=== PATIENT | male | born 1995 | race Hispanic/Latino ===

== ENCOUNTER 2017-05-25 02:35 | Observation (INO) | payer BC, SELFPAY ==
[2017-05-25 03:52] LABS: Absolute Monocytes 1.1 K/uL (0.1-1.3); Absolute Neutrophil 10.7 K/uL (1.8-8.0); Basophils % 0.6 % (0-1.3); Eosinophils % 3.4 % (0-4.4); Hematocrit 51.2 % (39.6-49.0); Lymphocytes % 19.1 % (15.3-44.8); MPV 10.7 fL (7.6-11.3); Monocytes % 7.4 % (3.3-12.3); RBC Red Blood Cell Count 5.51 M/uL (4.33-5.43)
[2017-05-25] MEDS ORDERED: HYDROCODONE/APAP 7.5/325 MG TAB ONE (04:23)
[2017-05-25] MEDS ORDERED: CEFAZOLIN SODIUM 1 GM/VIAL ONE (04:46)
--- NOTE | 2017-05-25 05:07 | EDPHYS ---
Physician Documentation [facility] Name: Jose Rafael Turpin Jr Age: 22 yrs Sex: Male : 1995 Arrival Date: 05/25/2017 Time: 02:38 Bed 18 Private MD: ED Physician Joel Paula HPI: 05/25 03:07 This 22 yrs old Male presents to ER via Wheelchair with complaints of Ankle pkl Injury, Ankle Swelling. 03:07 The patient presents with an injury, pain, that is acute, swelling. The complaints pkl affect the left ankle. Onset: The symptoms/episode began/occurred 2 day(s) ago. Context: resulted from hit left ankle against unknown object. Associated signs and symptoms: The patient has no apparent associated signs or symptoms. Historical: - Allergies: 02:57 NKA; jd3 - Home Meds: 02:57 None [Active]; jd3 - PMHx: 02:57 fatty liver; jd3 - PSHx: 02:57 None; jd3 - Immunization history:: Adult Immunizations up to date. - Social history:: Smoking status: Patient/guardian denies using tobacco, Patient/guardian denies using alcohol, street drugs. ROS: 03:07 Eyes: Negative for injury, pain, redness, and discharge, ENT: Negative for injury, pkl pain, and discharge, Neck: Negative for injury, pain, and swelling, Cardiovascular: Negative for chest pain, palpitations, and edema, Respiratory: Negative for shortness of breath, cough, wheezing, and pleuritic chest pain, Abdomen/GI: Negative for abdominal pain, nausea, vomiting, diarrhea, and constipation, Back: Negative for injury and pain, : Negative for injury, bleeding, discharge, and swelling, Neuro: Negative for headache, weakness, numbness, tingling, and seizure. 03:07 MS/extremity: Positive for pain, swelling, tenderness, of the left ankle. Exam: 03:07 Head/Face: Normocephalic, atraumatic. Eyes: Pupils equal round and reactive to light, pkl extra-ocular motions intact. Lids and lashes normal. Conjunctiva and sclera are non-icteric and not injected. Cornea within normal limits. Periorbital areas with no swelling, redness, or edema. ENT: Nares patent. No nasal discharge, no septal abnormalities noted. Tympanic membranes are normal and external auditory canals are clear. Oropharynx with no redness, swelling, or masses, exudates, or evidence of obstruction, uvula midline. Mucous membranes moist. Neck: Trachea midline, no thyromegaly or masses palpated, and no cervical lymphadenopathy. Supple, full range of motion without nuchal rigidity, or vertebral point tenderness. No Meningismus. Chest/axilla: Normal chest wall appearance and motion. Nontender with no deformity. No lesions are appreciated. Cardiovascular: Regular rate and rhythm with a normal S1 and S2. No gallops, murmurs, or rubs. Normal PMI, no JVD. No pulse deficits. Respiratory: Lungs have equal breath sounds bilaterally, clear to auscultation and percussion. No rales, rhonchi or wheezes noted. No increased work of breathing, no retractions or nasal flaring. Abdomen/GI: Soft, non-tender, with normal bowel sounds. No distension or tympany. No guarding or rebound. No evidence of tenderness throughout. Back: No spinal tenderness. No costovertebral tenderness. Full range of motion. Neuro: Awake and alert, GCS 15, oriented to person, place, time, and situation. Cranial nerves II-XII grossly intact. Motor strength 5/5 in all extremities. Sensory grossly intact. Cerebellar exam normal. Normal gait. 03:07 Musculoskeletal/extremity: Extremities: grossly normal except: noted in the left ankle: pain, swelling, tenderness. Vital Signs: 02:57 BP 143 / 88; Pulse 84; Resp 18 S; Temp 98.2(O); Pulse Ox 96% on R/A; Weight 111.13 kg jd3 (R); Height 5 ft. 6 in. (167.64 cm) (R); Pain 9/10; 04:13 BP 134 / 76; Pulse 82; Resp 17 S; Pulse Ox 97% on R/A; jd3 05:43 BP 118 / 58; Pulse 88; Resp 18 S; Pulse Ox 97% on R/A; jd3 06:38 BP 130 / 72; Pulse 74; Resp 18 S; Pulse Ox 96% on R/A; Pain 9/10; jd3 07:44 BP 117 / 59; Pulse 75; Resp 16; Temp 98.0; Pulse Ox 100% on R/A; Pain 9/10; em 02:57 Body Mass Index 39.54 (111.13 kg, 167.64 cm) jd3 MDM: 02:58 Patient medically screened. pkl 04:22 Data reviewed: vital signs, nurses notes, lab test result(s), radiologic studies, plain pkl films. 05/25 03:01 Order name: CBC with Diff; Complete Time: 05:02 pkl 04 03:01 Order name: Sed Rate; Complete Time: 05:02 pkl 05/25 03:01 Order name: Ankle Left 3 View XRAY; Complete Time: 19:02 pkl 05/25 05:18 Order name: SL; Complete Time: 05:18 jd3 Administered Medications: 04:02 Drug: [place] (7.5 mg-325 mg) 1 tabs Route: PO; bb 04:40 Follow up: Response: No adverse reaction jd3 05:15 Drug: morphine 4 mg Route: IVP; Site: left forearm; jd3 06:36 Follow up: Response: No adverse reaction; No change in condition jd3 05:15 Drug: Zofran 4 mg Route: IVP; Site: left forearm; jd3 06:36 Follow up: Response: No adverse reaction; No change in condition jd3 05:15 Drug: NS 0.9% 1000 ml Route: IV; Rate: 125 ml/hr; Site: left forearm; jd3 08:04 Follow up: IV Status: Infusion continued upon admission; IV Intake: 350ml em 05:18 Not Given (Physician Discretion): Ancef 1 grams IM once jd3 Disposition: 05/25/17 05:06 Hospitalization ordered by Renate Burden for Observation. Preliminary diagnosis is Cellulitis left ankle. - Bed requested for Telemetry/MedSurg (observation). - Status is Observation. em - Condition is Stable. - Problem is new. - Symptoms are unchanged. UTI on Admission? No Signatures: Dispatcher [employer] Mercy Kaur, RN Joel Alexander MD MD pkl Munoz, Edgar, CHIP UNLOADER CHIP UNLOADER em Kaylen De Paz RN RN bb Davies, Jonathon RN RN jd3 Corrections: (The following items were deleted from the chart) 04:33 04:22 Crutches ordered. pkl jd3
--- NOTE | 2017-05-25 05:07 | ER ---
Nurse's Notes [facility] Name: Jose Rafael Turpin Jr Age: 22 yrs Sex: Male : 1995 Arrival Date: 05/25/2017 Time: 02:38 Bed 18 Private MD: Diagnosis: Cellulitis left ankle Presentation: 05/25 02:53 Presenting complaint: Patient states: "I had bummed my left ankle two days ago, it jd3 didn't hurt initially, but yesterday into today it has started hurting worse and worse.". Transition of care: patient was not received from another setting of care. Onset of symptoms was May 23, 2017. Care prior to arrival: None. 02:53 Method Of Arrival: Wheelchair jd3 02:53 Acuity: KYARA 4 jd3 Historical: - Allergies: 02:57 NKA; jd3 - Home Meds: 02:57 None [Active]; jd3 - PMHx: 02:57 fatty liver; jd3 - PSHx: 02:57 None; jd3 - Immunization history:: Adult Immunizations up to date. - Social history:: Smoking status: Patient/guardian denies using tobacco, Patient/guardian denies using alcohol, street drugs. Screenin:01 Abuse screen: Denies threats or abuse. Nutritional screening: No deficits noted. jd3 Tuberculosis screening: No symptoms or risk factors identified. Fall Risk Gait- Weak (10 pts.). Total Adam Fall Scale indicates No Risk (0-24 pts). Assessment: 02:59 General: Appears in no apparent distress. uncomfortable, Behavior is calm, cooperative, jd3 appropriate for age. Pain: Complains of pain in anterior aspect of left ankle Pain currently is 9 out of 10 on a pain scale. Quality of pain is described as aching, sharp, Pain began 2-3 days ago. Neuro: Level of Consciousness is awake, alert, obeys commands, Oriented to person, place, time, situation. Cardiovascular: Heart tones S1 S2 present Capillary refill < 3 seconds Patient's skin is warm and dry. Respiratory: Airway is patent Respiratory effort is even, unlabored, Respiratory pattern is regular, symmetrical, Breath sounds are clear bilaterally. GI: Abdomen is round Patient currently denies abdominal pain, nausea, pain. : No signs and/or symptoms were reported regarding the genitourinary system. EENT: No signs and/or symptoms were reported regarding the EENT system. Derm: Skin is intact, Skin is dry, Skin is normal, Skin temperature is warm. Musculoskeletal: Circulation, motion, and sensation intact. Range of motion: limited in left ankle. Injury Description: Bruise sustained to anterior aspect of left ankle is red, was sustained 2 days ago. 04:12 Reassessment: Patient appears in no apparent distress at this time. Patient and/or jd3 family updated on plan of care and expected duration. Pain level reassessed. Patient is alert, oriented x 3, equal unlabored respirations, skin warm/dry/pink. 05:43 Reassessment: Patient appears in no apparent distress at this time. Patient and/or jd3 family updated on plan of care and expected duration. Pain level reassessed. Patient is alert, oriented x 3, equal unlabored respirations, skin warm/dry/pink. 06:37 Reassessment: Patient appears in no apparent distress at this time. Patient and/or jd3 family updated on plan of care and expected duration. Pain level reassessed. Patient is alert, oriented x 3, equal unlabored respirations, skin warm/dry/pink. pt reported no relief from pain, but was willing till after admission before more pain medication. provider notified. Vital Signs: 02:57 BP 143 / 88; Pulse 84; Resp 18 S; Temp 98.2(O); Pulse Ox 96% on R/A; Weight 111.13 kg j (R); Height 5 ft. 6 in. (167.64 cm) (R); Pain 9/10; 04:13 BP 134 / 76; Pulse 82; Resp 17 S; Pulse Ox 97% on R/A; jd3 05:43 BP 118 / 58; Pulse 88; Resp 18 S; Pulse Ox 97% on R/A; jd3 06:38 BP 130 / 72; Pulse 74; Resp 18 S; Pulse Ox 96% on R/A; Pain 9/10; jd3 07:44 BP 117 / 59; Pulse 75; Resp 16; Temp 98.0; Pulse Ox 100% on R/A; Pain 9/10; em 02:57 Body Mass Index 39.54 (111.13 kg, 167.64 cm) [facility] ED Course: 02:38 Patient arrived in ED. ds1 02:52 Vahid Grace RN is Primary Nurse. jd3 02:55 Triage completed. jd3 02:57 Joel Paula MD is Attending Physician. pkl 02:58 Arm band placed on. jd3 03:01 Patient has correct armband on for positive identification. Bed in low position. Call jd3 light in reach. Side rails up X 1. Adult w/ patient. 03:40 X-ray completed. Portable x-ray completed in exam room. Patient tolerated procedure kw well. 03:42 Ankle Left 3 View XRAY In Process Unspecified. EDMS 05:05 Renate Burden MD is Hospitalizing Provider. pkl 05:08 Inserted saline lock: 20 gauge in left forearm, using aseptic technique. cb2 06:38 No provider procedures requiring assistance completed. Patient admitted, IV remains in jd3 place. 06:58 Report given to Anjali BACH. jd3 Administered Medications: 04:02 Drug: [place] (7.5 mg-325 mg) 1 tabs Route: PO; bb 04:40 Follow up: Response: No adverse reaction jd3 05:15 Drug: morphine 4 mg Route: IVP; Site: left forearm; jd3 06:36 Follow up: Response: No adverse reaction; No change in condition jd3 05:15 Drug: Zofran 4 mg Route: IVP; Site: left forearm; jd3 06:36 Follow up: Response: No adverse reaction; No change in condition jd3 05:15 Drug: NS 0.9% 1000 ml Route: IV; Rate: 125 ml/hr; Site: left forearm; jd3 08:04 Follow up: IV Status: Infusion continued upon admission; IV Intake: 350ml em 05:18 Not Given (Physician Discretion): Ancef 1 grams IM once jd3 Intake: 08:04 IV: 350ml; Total: 350ml. em Outcome: 05:06 Decision to Hospitalize by Provider. pkl 07:56 Admitted to Med/surg accompanied by tech, via wheelchair, room 430, Report called to german Esteves RN 07:56 Condition: good 07:56 Instructed on the need for admit, Demonstrated understanding of instructions, follow-up care. 08:05 Patient left the ED. em Signatures: Dispatcher [employer] EDMO Joel Paula MD MD pkl Munoz, Edgar, LVN LVN Tamika Rojo ds1 Kaylen De Paz RN RN bb Yanni Mortensen Christian cb2 Davies, Jonathon, RN RN jd3 Corrections: (The following items were deleted from the chart) 04:41 04:24 Response: Pain is decreased jd3 jd3
[2017-05-25] MEDS ORDERED: ONDANSETRON 4 MG/2 ML VIAL ONE (05:27)
[2017-05-25] MEDS ORDERED: NA CHLORIDE 0.9% 1,000 ML ONE (05:27)
[2017-05-25] MEDS ORDERED: MORPHINE 4 MG/ML SYR ONE (05:27)
[2017-05-25] MEDS ORDERED: MORPHINE 2 MG/ML SYR IV PRN (05:39)
[2017-05-25] MEDS ORDERED: ONDANSETRON 4 MG/2 ML VIAL IV PRN (05:39)
[2017-05-25] MEDS ORDERED: ACETAMINOPHEN 500 MG TAB PO PRN (05:39)
--- NOTE | 2017-05-25 07:57 | RAD REPORT ---
EXAM DESCRIPTION: RAD - Ankle Left 3 View - 05/25/2017 3:42 am CLINICAL HISTORY: Ankle pain COMPARISON: None. FINDINGS: No fracture, dislocation or periosteal reaction. No joint effusion seen. No joint space na rrowing. Soft tissues around the ankle joint are prominent with the baseline for the patient is not k nown. No air or foreign body. No plantar or Achilles spurring. IMPRESSION: No acute bone or joint finding. Prominent soft tissues are present with the baseline unknown.
[2017-05-25] MEDS ORDERED: COLCHICINE 0.6 MG TAB PO ONE (08:10)
[2017-05-25] MEDS ORDERED: HYDROCORTISONE SUC 100 MG INJ IV ONE (08:10)
--- NOTE | 2017-05-25 08:21 | P.HP ---
Certification for Inpatient Patient admitted to: Observation With expected LOS: <2 Midnights Patient will require the following post-hospital care: None Practitioner: I am a practitioner with admitting privileges, knowledge of patient current condition, hospital course, and medical plan of care. Services: Services provided to patient in accordance with Admission requirements found in Title 42 Section 412.3 of the Code of Federal Regulations Patient History Date of Service: 05/25/17 Reason for admission: Left ankle pain History of Present Illness: Patient is a 22-year-old gentleman who came into the hospital after having severe pain in his left ankle. He apparently was walking from 1 room to the next when he accidentally kicked a separation in the doorway. 24 hr later his ankle was swollen and having a lot of pain. The ankle is painful to even very light touch. There is no erythema putting it is edematous. He may have sprained his ankle. Concern for gout as well. Patient will be admitted to the hospital for observation. Allergies No Known Allergies Allergy (Unverified 07/08/16 10:28) - Past Medical/Surgical History Past Medical History: Patient denies medical history Past Surgical History: Patient denies surgical history - Family History Father Family History: Reviewed- Non-Contributory - Social History Smoking Status: Never smoker Alcohol use: No CD- Drugs: No Review of Systems 10-point ROS is otherwise unremarkable Physical Examination - Vital Signs Temperature: 98.0 F Blood Pressure: 117/59 Pulse: 75 Respirations: 16 - Physical Exam General: Alert, In no apparent distress, Oriented x3 HEENT: Atraumatic, PERRLA, Mucous membr. moist/pink, EOMI, Sclerae nonicteric Neck: Supple, 2+ carotid pulse no bruit, No LAD, Without JVD or thyroid abnormality Respiratory: Clear to auscultation bilaterally, Normal air movement Cardiovascular: Regular rate/rhythm, Normal S1 S2, No murmurs Gastrointestinal: Normal bowel sounds, Soft and benign, Non-distended, No tenderness Musculoskeletal: No clubbing, Swelling, Tenderness Integumentary: No rashes Neurological: Normal gait, Normal speech, Normal strength at 5/5 x4 extr, Normal tone, Sensation intact, Cranial nerves 3-12 intact, Normal affect Lymphatics: No axilla or inguinal lymphadenopathy - Studies Laboratory Data (last 24 hrs) 05/25/17 03:17: WBC 15.4 H, Hgb 17.6, Hct 51.2 H, Plt Count 219 Assessment & Plan - Problems (Diagnosis) (1) Left ankle pain Current Visit: Yes Status: Acute Qualifiers: Chronicity: acute Qualified Code(s): M25.572 - Pain in left ankle and joints of left foot - Plan 1. Continue with IV antibiotic 2. Continue with steroids, and colchicine 3. Gentle IV hydration 4. Monitor CBC 5. Pain control 6. GI and DVT prophylaxis Discharge Plan: Home Plan to discharge in: 48 Hours - Advance Directives Does patient have a Living Will: No Does patient have a Durable POA for Healthcare: No - Code Status/Comfort Care Code Status Assessed: Yes Code Status: Full Code Critical Care: No Time Spent Managing PTS Care (In Minutes): 50
[2017-05-25] MEDS: AMPICILLIN/SULBACT 3 GM in NA CHLORIDE 0.9% 100 ML IVPB SCH ×3 (09:18→17:04)
[2017-05-25] MEDS: NA CHLORIDE 0.9% 1,000 ML IV SCH ×2 (09:26→16:00)
[2017-05-25 10:05] VITALS: BMI 39.5
[2017-05-25 12:39] LABS: ALT/SGPT 115 IU/L (10-60); AST/SGOT 58 IU/L (10-42); Albumin 4.2 g/dL (3.2-5.5); Alkaline Phosphatase 107 IU/L (42-121); BUN Blood Urea Nitrogen 8 mg/dL (6-20); Bicarbonate 26 mEq/L (21-31); Bilirubin Total 1.2 mg/dL (0.3-1.2); Glomerular Filtration Rate > 90 mL/min (=/>90); Glucose Level 106 mg/dL (65-120); Potassium 3.7 mEq/L (3.6-5.0); Protein, Total 7.5 g/dL (6.0-8.3); Sodium Level 136 mEq/L (135-145); Uric Acid 9.6 mg/dL (4.8-8.7)
--- NOTE | 2017-05-25 14:42 | PN ---
Date of Progress Note: 05/25/2017 Subjective: The patient is seen and examined, chart reviewed, and case discussed with RN. The patie nt continues to have significant amount of pain in his left ankle. Review of Systems: Negative except as above. Medications: Reviewed. Physical Examination: Vital signs: Temperature 98, heart rate 75, blood pressure 117/59, respirations 16, and O2 100% on r oom air. General: Awake, alert, oriented x3, some acute distress. Morbidly obese, BMI 39.5. CV: S1, S2. No murmurs. Peripheral pulses present. Respiratory: Clear to auscultation bilaterally. No wheezing. Abdomen: Soft, nontender, nondistended. Positive bowel sounds. Extremities: No clubbing, cyanosis. Peripheral edema. Musculoskeletal: left ankle mild erythema, decreased range of motion due to pain. Moderate tenderness to palpation. Neurologic: Nonfocal. Laboratory Data: Sodium 136, potassium 3.7, chloride 102, CO2 26, BUN 8, creatinine 0.88, glucose 10 6, uric acid 9.6, calcium 9.5, total bilirubin 1.2, AST 58, ALT 115, alkaline phosphatase 107, total protein 7.5, and albumin 4.2. WBC 15.4, H and H 17.6, 51.2, platelets 219, and absolute neutrophils 10.7. Assessment: 1.Left ankle pain. Differential diagnosis includes cellulitis versus gout. X-ray personally review ed, shows no fracture. Uric acid level was checked and is high. We will continue with colchicine. 2.Morbid obesity, body mass index 39.5. 3.Elevated liver enzymes, likely due to fatty liver infiltration. The patient is counseled. 4.Gastrointestinal and deep venous thrombosis prophylaxis with PPI and we will add Lovenox. The pat ient is not ambulating due to his pain. Plan: Continue steroids, colchicine, and pain medications. PT evaluation. Discharge in next 24-48 hours. SA/MODL Voice ID: [id number] Report ID: [id number]
[2017-05-26] MEDS: AMPICILLIN/SULBACT 3 GM in NA CHLORIDE 0.9% 100 ML IVPB SCH ×2 (00:24→05:21)
[2017-05-26] MEDS: NA CHLORIDE 0.9% 1,000 ML IV SCH (01:38)
[2017-05-26 06:32] LABS: Absolute Lymphocytes (CBC) 3.2 K/uL (0.7-4.9); Absolute Monocytes 0.9 K/uL (0.1-1.3); Basophils % 0.6 % (0-1.3); Eosinophils % 2.7 % (0-4.4); Hematocrit 44.7 % (39.6-49.0); Lymphocytes % 30.8 % (15.3-44.8); MCH 32.1 pg (27.0-35.0); MCV 93.1 fL (80-100); MPV 10.6 fL (7.6-11.3); Monocytes % 8.4 % (3.3-12.3)
[2017-05-26 09:20] VITALS: O2SAT 92
[2017-05-26 09:29] VITALS: BP 112/64; TEMP 97.1
[2017-05-26] MEDS ORDERED: HYDROCORTISONE SUC 100 MG INJ IV ONE (09:44)
--- NOTE | 2017-05-27 00:01 | DS ---
Date of Discharge: 05/26/2017 Admitting Diagnosis: Left ankle pain. Discharge Diagnoses: 1.Left ankle pain. 2.Gout. 3.Obesity, body mass index of 39.5. 4.Elevated liver enzymes, likely fatty liver infiltration. Hospital Course: The patient is a 22-year-old male, who was admitted to the hospital for left ankle pain, found to have some mild erythema. The patient was initially thought to have cellulitis, howeve r was more appearing like gout. His x-ray did not show any acute fractures. Labs showed elevated ur ic acid level. His white count normalized. He was started on antibiotics as well. The patient resp onded well to steroids, IV fluids, and colchicine. His pain improved. He was able to ambulate with a walker. The patient was then cleared for discharge in a stable condition. He was counseled regard ing his elevated LFTs, which likely represent fatty liver infiltration. He is to modify his diet and exercise regimen. He was instructed to avoid purine from food sources such as beer, alcohol, red me at, fish. The patient voiced understanding. The patient was then discharged home in a stable condit ion. Activity: Fall precautions. Diet: Avoid red meat, alcohol, fish. Followup: Follow up with primary care physician in 2 to 3 days. Return to ER for worsening conditio n. Repeat CMP in 1 month. Medications: As per medication reconciliation list. Physical Examination: General: Awake, alert, oriented, no acute distress. CV: S1, S2. No murmurs. Respiratory: Moving air well bilaterally. No wheezing. Abdomen: Abdomen is soft, nontender, nondistended. Positive bowel sounds. Extremities: No clubbing, cyanosis, or edema. Musculoskeletal: Left ankle tenderness to palpation. Some mild erythema. Decreased range of motion due to pain. Neurologic: Nonfocal. SA/MODL Voice ID: [id number] Report ID: [id number]
== END 2017-05-26 11:45 | disposition home or self-care (01) ==
LOC: ER 02:35 → ERHOLD 05:08 → 4TH 06:16
PROVIDERS: ADMIT Hospitalist; ATTEND Hospitalist
DX: R74.8 Abnormal levels of other serum enzymes; M10.9 Gout, unspecified; Z68.39 Body mass index [BMI] 39.0-39.9, adult; E66.9 Obesity, unspecified
CPT/HCPCS: 36415; 80053; 84550; 85025; 85652; 96361; 96374; 96375; 99285; G0378; J0295; J0690; J1720; J2270; J2405; J7030

== ENCOUNTER 2021-02-19 07:58 | Emergency (ER) | payer BC ==
--- OUTSIDE RECORDS SUMMARY | 2021-02-19 08:03 | XMS REPORT | Continuity of Care Document ---
:1995 Author Organization [facility] t Address [facility] [place] [address] Care Team Providers Name Role Phone Pcp, Patient Does Not Have A Primary Care Physician [id number] Raleigh MCKEON Attending Clinician Nurse, Db Urgent Care Attending Clinician Unavailable Víctor MCKEON Attending Clinician VÍCTOR Attending Clinician Unavailable Doctor Unassigned, Name Attending Clinician Unavailable OPAL Attending Clinician Unavailable Provider, Urgent Care Attending Clinician Unavailable Opal SORTING SUPERVISOR Attending Clinician Yoel MANLEY B Attending Clinician Payers Payer Name Policy Type Policy Number Effective Date Expiration Date S cy [facility] [id number] 2019 00:00:00 Problems Condition Condition Condition Status Onset Resolution Last Treating Co mments Source Name Details Category Date Date Treatment Clinician Date No known No known Disease Unive rs active active ity of problems problems [facility] Allergies, Adverse Reactions, Alerts Allergy Allergy Status Severity Reaction(s) Onset Inactive Treating Comm ents Source Name Type Date Date Clinician NO KNOWN Drug Active Univers ALLERGIE Class ity of S [facility] Social History Social Habit Start Date Stop Date Quantity Comments Source Exposure to Not sure [facility]-CoV2 [facility] (event) [place] Tobacco use and 2020-12-08 2020-12-08 Never used Universit y of exposure 00:00:00 00:00:00 [facility] Alcohol intake 2020-12-08 2020-12-08 Lifetime University of 00:00:00 00:00:00 non-drinker [facility] (finding) [place] Sex Assigned At [birth year] Universit y of 00:00:00 00:00:00 [facility] Smoking Status Start Date Stop Date Source Never smoker [facility] Unknown if ever smoked [facility] Medications Ordered Filled Start Stop Current Ordering Indication Dosage Frequency Signature Comments Components Source Medication Medication Date Date Medication? Clinician (SIG) Name Name ketorolac 2020-02 No 30mg 30 mg, Unive rs (TORADOL) 0-16 10-16 Slow IV ity of injection 19:15: 18:11 Push, [place] 30 mg 00 :00 ONCE, 1 Medical dose, On Branch 12/08/20 at 1415, LINDA
Fa culty member approving Restricted medication : ISIDORO QUARLES NaCl 0.9% 2020-02 No 1000mL at 999 Uni vers (NS) bolus 0-16 10-16 mL/hr, ity of infusion 19:15: 19:25 1,000 mL, Nathan as 1,000 mL 00 :00 IV Medical Infusion, Branch ONCE, 1 dose, On 12/08/20 at 1415, STAT ibuprofen 2020-02 Yes [id number] 800mg Take 1 Univers 800 mg 0-16 tablet by ity of tablet 00:00: mouth [place] 00 every 8 Medical (eight) Branch hours as needed for Pain (scale 4-6). ibuprofen 2019- No 800mg 800 mg, Uni vers (IBU) 11-11 Oral, ity of tablet 800 16:15: 16:04 ONCE, 1 Nathan as mg 00 :00 dose, [facility] 11/12/19 at Branch 1115, LINDA HYDROcodone 2020- No 1{tbl} 1 tablet, Univers -acetaminop 11-11 Oral, ity of hen (NORCO 16:15: 16:04 ONCE, 1 Nathan as 5) 5-325 mg 00 :00 dose, Sat Med ical tablet 1 11/12/19 at [facility] tablet 1115, LINDA ibuprofen 2020-0 Yes [id number] 800mg Take 1 Univers 800 mg 9-19 9107 tablet by ity of tablet 00:00: mouth [place] 00 every 8 Medical (eight) Branch hours as needed for Pain (scale 4-6). ibuprofen 2020-0 Yes [id number] 800mg Take 1 Univers 800 mg 9-19 9107 tablet by ity of tablet 00:00: mouth [place] 00 every 8 Medical (eight) Branch hours as needed for Pain (scale 4-6). ibuprofen 2020-0 Yes [id number] 800mg Take 1 Univers 800 mg 9-19 9107 tablet by ity of tablet 00:00: mouth [place] 00 every 8 Medical (eight) Branch hours as needed for Pain (scale 4-6). ibuprofen 2020-0 Yes [id number] 800mg Take 1 Univers 800 mg 9-19 9107 tablet by ity of tablet 00:00: mouth [place] 00 every 8 Medical (eight) Branch hours as needed for Pain (scale 4-6). ibuprofen 2020-0 Yes [id number] 800mg Take 1 Univers 800 mg 9-19 9107 tablet by ity of tablet 00:00: mouth [place] 00 every 8 Medical (eight) Branch hours as needed for Pain (scale 4-6). ibuprofen 2020-0 Yes [id number] 800mg Take 1 Univers 800 mg 9-19 9107 tablet by ity of tablet 00:00: mouth [place] 00 every 8 Medical (eight) Branch hours as needed for Pain (scale 4-6). acetaminoph 2020-0 2020- No 4647 1{tbl} Take 1 U nivers en-codeine 11-11 tablet by ity of (TYLENOL-CO 00:00: 04:59 [place] DEINE #3) 00 :00 every 6 Medical 300-30 mg (six) Branch tablet hours as needed for Pain (scale 7-10) for up to 7 days. Indication s: acute pain Immunizations Ordered Immunization Filled Immunization Date Status Commen ts Source Name Name HPV 2011-09-17 Completed University of 00:00:00 [place] [facility] Meningococcal 2011-09-17 Completed [facility] 00:00:00 [facility] (groups A, C, Y and Branc h W-135) conjugate vaccine (MCV4P) HPV 2011-09-17 Completed University of 00:00:00 [facility] Branch Meningococcal 2011-09-17 Completed University of Polysaccharide 00:00:00 [place] [facility] (groups A, C, Y and Branc h W-135) conjugate vaccine (MCV4P) HPV 2011-09-17 Completed University of 00:00:00 [facility] Branch Meningococcal 2011-09-17 Completed University of Polysaccharide 00:00:00 [place] [facility] (groups A, C, Y and Branc h W-135) conjugate vaccine (MCV4P) HPV 2011-09-17 Completed University of 00:00:00 [facility] Branch Meningococcal 2011-09-17 Completed University of Polysaccharide 00:00:00 [place] [facility] (groups A, C, Y and Branc h W-135) conjugate vaccine (MCV4P) HPV 2011-09-17 Completed University of 00:00:00 [facility] Branch Meningococcal 2011-09-17 Completed University of Polysaccharide 00:00:00 [place] [facility] (groups A, C, Y and Branc h W-135) conjugate vaccine (MCV4P) HPV 2011-09-17 Completed University of 00:00:00 [facility] Branch Meningococcal 2011-09-17 Completed University of Polysaccharide 00:00:00 [place] [facility] (groups A, C, Y and Branc h W-135) conjugate vaccine (MCV4P) HPV 2010-08-05 Completed University of 00:00:00 [place] [facility] HPV 2010-08-05 Completed University of 00:00:00 [place] [facility] HPV 2010-08-05 Completed University of 00:00:00 [place] [facility] HPV 2010-08-05 Completed University of 00:00:00 [place] [facility] HPV 2010-08-05 Completed University of 00:00:00 [place] [facility] HPV 2010-08-05 Completed University of 00:00:00 [facility] Branch Meningococcal Vaccine 2007-04-13 Completed Uni versity of 00:00:00 [facility] Branch TDAP 2007-04-13 Completed University of 00:00:00 [place] [facility] Meningococcal Vaccine 2007-04-13 Completed Uni versity of 00:00:00 [facility] Branch TDAP 2007-04-13 Completed University of 00:00:00 [facility] Branch Meningococcal Vaccine 2007-04-13 Completed Uni versity of 00:00:00 [facility] Branch TDAP 2007-04-13 Completed University of 00:00:00 [facility] Meningococcal Vaccine 2007-04-13 Completed Uni versity of 00:00:00 [facility] TDAP 2007-04-13 Completed University of 00:00:00 [facility] Meningococcal Vaccine 2007-04-13 Completed Uni versity of 00:00:00 [facility] TDAP 2007-04-13 Completed University of 00:00:00 [facility] Meningococcal Vaccine 2007-04-13 Completed Uni versity of 00:00:00 [facility] TDAP 2007-04-13 Completed University of 00:00:00 [facility] MMR 1997-04-17 Completed University of 00:00:00 [facility] Polio (IPV/OPV) 1997-04-17 Completed Universit y of 00:00:00 [facility] DTAP 1997-04-17 Completed University of 00:00:00 [facility] MMR 1997-04-17 Completed University of 00:00:00 [facility] Polio (IPV/OPV) 1997-04-17 Completed Universit y of 00:00:00 [facility] DTAP 1997-04-17 Completed University of 00:00:00 [facility] MMR 1997-04-17 Completed University of 00:00:00 [facility] Polio (IPV/OPV) 1997-04-17 Completed Universit y of 00:00:00 [facility] DTAP 1997-04-17 Completed University of 00:00:00 [facility] DTAP 1997-04-17 Completed University of 00:00:00 [facility] MMR 1997-04-17 Completed University of 00:00:00 [facility] Polio (IPV/OPV) 1997-04-17 Completed Universit y of 00:00:00 [facility] MMR 1997-04-17 Completed University of 00:00:00 [facility] Polio (IPV/OPV) 1997-04-17 Completed Universit y of 00:00:00 [facility] DTAP 1997-04-17 Completed University of 00:00:00 [facility] MMR 1997-04-17 Completed University of 00:00:00 [facility] Polio (IPV/OPV) 1997-04-17 Completed Universit y of 00:00:00 [facility] DTAP 1997-04-17 Completed University of 00:00:00 [place] [facility] Hep B, Adol or Pedi 1995-02-02 Completed Unive rsity of Dosage 00:00:00 [place] [facility] MMR 1995-02-02 Completed University of 00:00:00 [place] [facility] DTAP 1995-02-02 Completed University of 00:00:00 [place] [facility] HIB 4 Dose Schedule 1995-02-02 Completed Unive rsity of 00:00:00 [place] [facility] Hep B, Adol or Pedi 1995-02-02 Completed Unive rsity of Dosage 00:00:00 [place] [facility] MMR 1995-02-02 Completed University of 00:00:00 [place] [facility] DTAP 1995-02-02 Completed University of 00:00:00 [place] [facility] HIB 4 Dose Schedule 1995-02-02 Completed Unive rsity of 00:00:00 [place] [facility] Hep B, Adol or Pedi 1995-02-02 Completed Unive rsity of Dosage 00:00:00 [place] [facility] MMR 1995-02-02 Completed University of 00:00:00 [place] [facility] DTAP 1995-02-02 Completed University of 00:00:00 [place] [facility] DTAP 1995-02-02 Completed University of 00:00:00 [place] [facility] HIB 4 Dose Schedule 1995-02-02 Completed Unive rsity of 00:00:00 [place] [facility] Hep B, Adol or Pedi 1995-02-02 Completed Unive rsity of Dosage 00:00:00 [place] [facility] MMR 1995-02-02 Completed University of 00:00:00 [facility] Branch HIB 4 Dose Schedule 1995-02-02 Completed Unive rsity of 00:00:00 [place] [facility] Hep B, Adol or Pedi 1995-02-02 Completed Unive rsity of Dosage 00:00:00 [place] [facility] MMR 1995-02-02 Completed University of 00:00:00 [place] [facility] DTAP 1995-02-02 Completed University of 00:00:00 [place] [facility] HIB 4 Dose Schedule 1995-02-02 Completed Unive rsity of 00:00:00 [place] [facility] Hep B, Adol or Pedi 1995-02-02 Completed Unive rsity of Dosage 00:00:00 [place] [facility] MMR 1995-02-02 Completed University of 00:00:00 [place] [facility] DTAP 1995-02-02 Completed University of 00:00:00 [place] [facility] HIB 4 Dose Schedule 1995-02-02 Completed Unive rsity of 00:00:00 [place] [facility] DTAP 1994-06-14 Completed University of 00:00:00 [place] [facility] HIB 4 Dose Schedule 1994-06-14 Completed Unive rsity of 00:00:00 [place] [facility] DTAP 1994-06-14 Completed University of 00:00:00 [place] [facility] HIB 4 Dose Schedule 1994-06-14 Completed Unive rsity of 00:00:00 [place] [facility] DTAP 1994-06-14 Completed University of 00:00:00 [place] [facility] DTAP 1994-06-14 Completed University of 00:00:00 [facility] Branch HIB 4 Dose Schedule 1994-06-14 Completed Unive rsity of 00:00:00 [facility] Branch HIB 4 Dose Schedule 1994-06-14 Completed Unive rsity of 00:00:00 [place] [facility] DTAP 1994-06-14 Completed University of 00:00:00 [facility] Branch HIB 4 Dose Schedule 1994-06-14 Completed Unive rsity of 00:00:00 [place] [facility] DTAP 1994-06-14 Completed University of 00:00:00 [facility] HIB 4 Dose Schedule 1994-06-14 Completed Unive rsity of 00:00:00 [facility] Polio (IPV/OPV) 1994-01-14 Completed Universit y of 00:00:00 [facility] Branch Polio (IPV/OPV) 1994-01-14 Completed Universit y of 00:00:00 [facility] Branch Polio (IPV/OPV) 1994-01-14 Completed Universit y of 00:00:00 [facility] Branch Polio (IPV/OPV) 1994-01-14 Completed Universit y of 00:00:00 [facility] Branch Polio (IPV/OPV) 1994-01-14 Completed Universit y of 00:00:00 [facility] Branch Polio (IPV/OPV) 1994-01-14 Completed Universit y of 00:00:00 [facility] Branch Polio (IPV/OPV) 1993 Completed Universit y of 00:00:00 [facility] Branch DTAP 1993 Completed University of 00:00:00 [facility] Branch Polio (IPV/OPV) 1993 Completed Universit y of 00:00:00 [place] [facility] DTAP 1993 Completed University of 00:00:00 [facility] Polio (IPV/OPV) 1993 Completed Universit y of 00:00:00 [facility] DTAP 1993 Completed University of 00:00:00 [facility] DTAP 1993 Completed University of 00:00:00 [facility] Polio (IPV/OPV) 1993 Completed Universit y of 00:00:00 [facility] Polio (IPV/OPV) 1993 Completed Universit y of 00:00:00 [facility] DTAP 1993 Completed University of 00:00:00 [facility] Polio (IPV/OPV) 1993 Completed Universit y of 00:00:00 [facility] DTAP 1993 Completed University of 00:00:00 [facility] Polio (IPV/OPV) 1993 Completed Universit y of 00:00:00 [facility] DTAP 1993 Completed University of 00:00:00 [facility] Polio (IPV/OPV) 1993 Completed Universit y of 00:00:00 [facility] DTAP 1993 Completed University of 00:00:00 [facility] DTAP 1993 Completed University of 00:00:00 [facility] Polio (IPV/OPV) 1993 Completed Universit y of 00:00:00 [facility] DTAP 1993 Completed University of 00:00:00 [facility] Polio (IPV/OPV) 1993 Completed Universit y of 00:00:00 [facility] Polio (IPV/OPV) 1993 Completed Universit y of 00:00:00 [facility] DTAP 1993 Completed University of 00:00:00 [facility] Polio (IPV/OPV) 1993 Completed Universit y of 00:00:00 [facility] DTAP 1993 Completed University of 00:00:00 [facility] Polio (IPV/OPV) 1993 [facility] HIB 4 Dose Schedule 1993 Completed Unive rsity of 00:00:00 [facility] Polio (IPV/OPV) 1993 Completed Universit y of 00:00:00 [facility] DTAP 1993 Completed University of 00:00:00 [facility] DTAP 1993 Completed University of 00:00:00 [facility] HIB 4 Dose Schedule 1993 Completed Unive rsity of 00:00:00 [facility] Polio (IPV/OPV) 1993 Completed Universit y of 00:00:00 [facility] Branch DTAP 1993 Completed University of 00:00:00 [facility] HIB 4 Dose Schedule 1993 Completed Unive rsity of 00:00:00 [facility] Polio (IPV/OPV) 1993 Completed Universit y of 00:00:00 [facility] HIB 4 Dose Schedule 1993 Completed Unive rsity of 00:00:00 [facility] Polio (IPV/OPV) 1993 Completed Universit y of 00:00:00 [facility] DTAP 1993 Completed University of 00:00:00 [facility] HIB 4 Dose Schedule 1993 Completed Unive rsity of 00:00:00 [facility] Polio (IPV/OPV) 1993 Completed Universit y of 00:00:00 [facility] DTAP 1993 Completed University of 00:00:00 [facility] HIB 4 Dose Schedule 1993 Completed Unive rsity of 00:00:00 [place] [facility] Hep B, Adol or Pedi 1993 Completed Unive rsity of Dosage 00:00:00 [place] [facility] Hep B, Adol or Pedi 1993 Completed Unive rsity of Dosage 00:00:00 [place] [facility] Hep B, Adol or Pedi 1993 Completed Unive rsity of Dosage 00:00:00 [place] [facility] Hep B, Adol or Pedi 1993 Completed Unive rsity of Dosage 00:00:00 [place] [facility] Hep B, Adol or Pedi 1993 Completed Unive rsity of Dosage 00:00:00 [place] [facility] Hep B, Adol or Pedi 1993 Completed Unive rsity of Dosage 00:00:00 [place] [facility] Hep B, Adol or Pedi 1993 Completed Unive rsity of Dosage 00:00:00 [place] [facility] Hep B, Adol or Pedi 1993 Completed Unive rsity of Dosage 00:00:00 [place] [facility] Hep B, Adol or Pedi 1993 Completed Unive rsity of Dosage 00:00:00 [place] [facility] Hep B, Adol or Pedi 1993 Completed Unive rsity of Dosage 00:00:00 [place] [facility] Hep B, Adol or Pedi 1993 Completed Unive rsity of Dosage 00:00:00 [place] [facility] Hep B, Adol or Pedi 1993 Completed Unive rsity of Dosage 00:00:00 [facility] Vital Signs Vital Name Observation Time Observation Value Comments Source Systolic blood 2020-12-08 19:00:00 134 mm[Hg] Univer sity of pressure [facility] Diastolic blood 2020-12-08 19:00:00 83 mm[Hg] Unive rsity of pressure [facility] Heart rate 2020-12-08 19:00:00 91 /min [facility] Respiratory rate 2020-12-08 19:00:00 20 /min [facility] Oxygen saturation in 2020-12-08 19:00:00 97 /min [facility] Arterial blood by [facility] Pulse oximetry Branch Body temperature 2020-12-08 17:37:57 37.61 Angelique [facility] Body height 2020-12-08 16:39:00 165.1 cm [facility] Body weight 2020-12-08 16:39:00 122.471 kg [facility] BMI 2020-12-08 16:39:00 44.93 kg/m2 [facility] Systolic blood 2020-12-08 15:35:00 137 mm[Hg] Univer sity of pressure [facility] Diastolic blood 2020-12-08 15:35:00 84 mm[Hg] Unive rsity of pressure [facility] Heart rate 2020-12-08 15:35:00 102 /min [facility] Body temperature 2020-12-08 15:35:00 37.22 Angelique Univ ersity of [place] [facility] Respiratory rate 2020-12-08 15:35:00 20 /min Univ ersity [facility] [place] [facility] Body height 2020-12-08 15:35:00 167.6 cm [facility]i ty [facility] [place] [facility] Body weight 2020-12-08 15:35:00 123.478 kg [facility]i ty [facility] [place] [facility] BMI 2020-12-08 15:35:00 43.94 kg/m2 Universi ty of [facility] Branch Oxygen saturation in 2020-12-08 15:35:00 98 /min University of Arterial blood by [facility] Pulse oximetry Branch Oxygen saturation in 2020-07-24 22:51:00 93 /min University of Arterial blood by [facility] Pulse oximetry Branch Systolic blood 2020-07-24 22:48:00 123 mm[Hg] Univer sity of pressure [facility] [place] Diastolic blood 2020-07-24 22:48:00 78 mm[Hg] Unive rsity of pressure [facility] Heart rate 2020-07-24 22:48:00 95 /min Universi ty of [place] [facility] Body temperature 2020-07-24 22:48:00 36.83 Angelique Univ ersity of [facility] Branch Respiratory rate 2020-07-24 22:48:00 18 /min Univ ersity of [facility] Branch Body height 2020-07-24 22:48:00 167.6 cm Universi ty [facility] [place] [facility] Body weight 2020-07-24 22:48:00 127.007 kg [facility] [place] [facility] BMI 2020-07-24 22:48:00 45.19 kg/m2 [facility] [place] [facility] Systolic blood 2019-11-12 15:05:00 137 mm[Hg] Univer sity of pressure [facility] Diastolic blood 2019-11-12 15:05:00 101 mm[Hg] Unive rsity of pressure [facility] Heart rate 2019-11-12 15:05:00 87 /min [facility] [place] [facility] Body temperature 2019-11-12 15:05:00 37.11 Angelique Univ ersity of [place] [facility] Respiratory rate 2019-11-12 15:05:00 18 /min Univ ersity of [place] [facility] Body weight 2019-11-12 15:05:00 124.286 kg [facility] Oxygen saturation in 2019-11-12 15:05:00 98 /min [facility] blood by [facility] Pulse oximetry Branch Procedures Procedure Date / Time Performing Clinician Source Performed ADC,CLC OR LCC ONLY - 2020-12-08 17:59:00 Isidoro Quarles [facility] INFLUENZA A & B DIRECT Medical [place] ANTIGEN CREATINE KINASE 2020-12-08 17:58:00 Isidoro Quarles [facility] MAGNESIUM 2020-12-08 17:58:00 [place] Isidoro [facility] COMP. METABOLIC PANEL 2020-12-08 17:58:00 Isidoro Quarles [facility] ([id number]) [facility] SEDIMENTATION RATE 2020-12-08 17:58:00 Isidoro Quarles [facility] CBC WITH DIFF 2020-12-08 17:58:00 [place] Isidoro [facility] COVID-19 (ID NOW RAPID 2020-12-08 16:44:00 Isidoro Quarles [facility] TESTING) [facility] CONSENT/REFUSAL FOR 2020-12-08 16:03:37 Doctor Unassigned, No [facility] DIAGNOSIS AND TREATMENT [facility] POCT GRP A STREP 2020-07-24 23:11:00 Cyndie Francis [facility] (MOLECULAR) [facility] ASSIGNMENT OF BENEFITS 2020-07-24 22:42:40 Doctor Unassigned, No [facility] Name Medical Branch XR ANKLE <3 VW LEFT 2019-11-12 16:00:56 Yuriy Diallo [facility] XR FOOT <3 VW LEFT 2019-11-12 16:00:56 Yuriy Diallo [facility] XR TIBIA FIBULA 2 VW 2019-11-12 16:00:56 Yuriy Diallo [facility] Encounters Start End Encounter Admission Attending Care Care Encounter Source Date/Time Date/Time Type Type Clinicians Facility Department ID 2020-12-[address] [facility] [id number] Univers 07:18:29 [facility] 2021-01-09 2021-01-09 ambulatory [facility] [id number] 2020-12-24 2020-12-24 [id number] 2020-12-10 2020-12-10 [facility] [id number] [facility] 2020-12-10 2020-12-10 Outpatient [facility] [id number] [facility] 2020-12-08 2020-12-08 [id number] Univers 11:41:00 14:56:00 Isidoro Weber [id number] i ty [facility] [id number] [place] [id number] [facility] [address] 2020-12-08 2020-12-08 Nurse Nurse, [facility] 1.2.840.114 [id number] Univers 10:29:52 10:49:52 Visit Sanjay Renee [facility] [id number] ity of [place] 4.2.7.2.686 Nathan as Jero?Blea [phone] [address] Medical Office Building 2020-12-08 2020-12-08 Outpatient R [facility] [id number] Univers 10:30:00 10:30:[id number] [facility] 2020-12-08 2020-12-08 [facility] [id number] Univers 10:30:00 10:30:[address] [facility] 2020-12-08 2020-12-08 Orders Doctor DUNCAN [id number] [id number] Univers 00:00:00 00:00:00 Only Unassigned, DORITA [id number] ity of [place] [facility] 4.2.7.2.686 Nathan as [phone] [facility] [address] 2020-07-24 2020-07-24 Outpatient R OPAL [facility] [id number] Univers 19:40:00 19:40:00 CYNDIE ity of [facility] 2020-07-24 2020-07-24 Urgent Provider, [facility] 1.2.840.114 [id number] Univers 17:44:18 18:04:18 Cyndie Smith [facility] [id number] ity of [place] [id number] Nathan as Professio [phone] Az dical [address] Office Building One 2020-07-24 2020-07-24 Orders Doctor DAKOTA 1.2.840.114 [id number] Univers 00:00:00 00:00:00 Only Unassigned, DORITA [id number] ity of [place] [facility] 4.2.7.2.686 Nathan as [phone] [facility] [address] 2019-11-12 2019-11-12 Emergency Yoel, [facility] 1.2.840.114 [id number] Univers 10:07:00 12:25:00 Yuriy B Tia 350.1.13.10 [place] [phone] [facility] [address] 2019-11-12 2019-11-12 Emergency X [facility] ERT [id number] Univers 09:59:00 09:59:00 [facility] Results Test Description Test Time Test Comments Results Result Comments Source SEDIMENTATION RATE 2020-12-08 18:59:41 Test Item Value Reference Range Interpretation Comme nts ESR (test code = 8434642390) See_Comment H [Automated message] The system which generated this result transmitted ref erence range: 0 - 10 mm/HR. The r eference range was not used to interpret this result as romel l/abnormal. Lab Interpretation (test code Abnormal = 62826-1) [facility]. METABOLIC PANEL (91339)2020-12-08 18:42:22 Test Item Value Reference Range Interpretation Comments NA (test code = 137 mmol/L 135-145 1483074042) K (test code = 4.1 mmol/L 3.5-5.0 3197616282) CL (test code = 104 mmol/L 98-108 4267778111) CO2 TOTAL (test code = 23 mmol/L 23-31 2861455762) AGAP (test code = 2-16 2369462913) BUN (test code = 7 mg/dL 7-23 8077051043) GLUCOSE (test code = 98 mg/dL 70-110 3492129327) CREATININE (test code = 0.76 mg/dL 0.60-1.25 4806821954) TOTAL BILI (test code = 1.1 mg/dL 0.1-1.5 8843499883) CALCIUM (test code = 9.7 mg/dL 8.6-10.6 6629252845) T PROTEIN (test code = 8.6 g/dL 6.3-8.2 H 3192178207) ALBUMIN (test code = 4.7 g/dL 3.5-5.0 6060136572) ALK PHOS (test code = 123 U/L 34-122 H 4069417864) ALTv (test code = 119 U/L 5-50 H 1742-6) AST(SGOT) (test code = 95 U/L 13-40 H 3607917483) eGFR (test code = mL/min/1.73m2 5913273828) MIGUEL ANGEL (test code = MIGUEL ANGEL) Association of Glomerular Filtration Rate (GFR) and Staging of Kidney Disease* + --+ --+ ------+| GFR (mL/min/1.73 m2) ?| With Kidney Damage ?| ?Without Kidney Damage+ --------+ --------+ +| ?>90 ?| ?Stage one ?| ? Normal ?+ ---+ ---+ -------+| ?60-89 ?| ?Stage two ?| ? Decreased GFR ? + --+ --+ ------+| ?30-59 ?| ?Stage three ?| ? Stage three ? + --+ --+ ------+| ?15-29 ?| ?Stage four ? | ? Stage four ?+ ---+ ---+ -------+| ?<15 (or dialysis) ? ?| ?Stage five ? | ? Stage five ?+ ---+ ---+ -------+ *Each stage assumes the associated GFR level has been in effect for at least three months. ?Stages 1 to 5, with or without kidney disease, indicate chronic kidney disease. Notes: Determination of stages one and two (with eGFR >59mL/min/1.73 m2) requires estimation of kidney damage for at least three months as defined by structural or functional abnormalities of the kidney, manifested by either:Pathological abnormalities or Markers of kidney damage (including abnormalities in the composition of the blood or urine or abnormalities in imaging tests). Lab Interpretation Abnormal (test code = 28559-0) [facility]42[facility]22 Test Item Value Reference Range Interpretation Comments MAGNESIUM (test code = 5141389260) 1.8 mg/dL 1.7-2.4 Lab Interpretation (test code = Normal 29949-7) [facility] [id number] 18:42:01 Test Item Value Reference Range Interpretation Comments CK (test code = 5095427409) 152 U/L 33-194 Lab Interpretation (test code = Normal 94928-6) [facility] WITH [id number] 18:31:30 Test Item Value Reference Range Interpretation Comments WBC (test code = See_Comment [Automated 9690-2) message] The sy stem which generated this result transmitted reference range : 4.20 - 10.70 10*3/?L. The reference range was not used to interpret this result as normal/abnormal . RBC (test code = See_Comment [Automated 039-8) message] The sy stem which generated this result transmitted reference range : 4.26 - 5.52 10*6/?L. The reference range was not used to interpret this result as normal/abnormal . HGB (test code = 17.1 g/dL 12.2-16.4 H 718-7) HCT (test code = 47.4 % 38.4-49.3 4544-3) MCV (test code = 91.2 fL 81.7-95.6 787-2) MCH (test code = 32.9 pg 26.1-32.7 H 785-6) MCHC (test code = 36.1 g/dL 31.2-35.0 H 786-4) RDW-SD (test code = 40.5 fL 38.5-51.6 65169-5) RDW-CV (test code = 12.2 % 12.1-15.4 788-0) PLT (test code = See_Comment [Automated 777-3) message] The sy stem which generated this result transmitted reference range : 150 - 328 10*3/ ?L. The reference r karol was not used to interpret this result as normal/abnormal . MPV (test code = 11.6 fL 9.8-13.0 81926-1) NRBC/100 WBC (test See_Comment [Automat ed code = 9637686599) message] The system which generated this result transmitted reference range : 0.0 - 10.0 /100 WBCs. The refer ence range was not u sed to interpret th is result as normal/abnormal . NRBC x10^3 (test code <0.01 See_Comment [Auto mated = 6519184277) message] The s ystem which generated this result transmitted reference range : 10*3/?L. The reference range was not used to interpret this result as normal/abnormal . GRAN MAT (NEUT) % 75.9 % (test code = 770-8) IMM GRAN % (test code 0.80 % = 9641096539) LYMPH % (test code = 10.8 % 736-9) MONO % (test code = 9.4 % 5905-5) EOS % (test code = 2.2 % 713-8) BASO % (test code = 0.9 % 706-2) GRAN MAT x10^3(ANC) 8.05 10*3/uL 1.99-6.95 H (test code = 3828245565) IMM GRAN x10^3 (test 0.08 10*3/uL 0.00-0.06 H code = 0369276739) LYMPH x10^3 (test code 1.14 10*3/uL 1.09-3.23 = 731-0) MONO x10^3 (test code 0.99 10*3/uL 0.36-1.02 = 742-7) EOS x10^3 (test code = 0.23 10*3/uL 0.06-0.53 711-2) BASO x10^3 (test code 0.09 10*3/uL 0.01-0.09 = 704-7) Lab Interpretation Abnormal (test code = 75300-6) [facility]2020-07-24 23:11:00 Test Item Value Reference Range Interpretation Comments POCT GP A STREP (test code = Negative Negative - Negative 45199-3) Lab Interpretation (test code = Normal 92127-6) [facility]3 VW [id number] 16:19:54 Ankle and forefoot soft tissue swelling with no acute osseousabnormalities. EXAM: XR ANKLE <3 VWLEFT, EXAM: XR FOOT <3 VW LEFT, EXAM: XR TIBIA FIBULA 2 VW LEFT HISTORY: pain, swelling COMPARISON: None FINDINGS: Imaging of the ankle, foot and tibia/fibula demonstrates mild swellingabout the forefoot. The ankle mortise is anatomic. Moderate swellingsurrounds the ankle. Joint spaces are preserved. [facility], Radiant Results [facility] User - 11/12/2019 11:21 AM CDTEXAM:XR ANKLE <3 VW LEFT,EXAM:XR FOOT <3 VW LEFT,EXAM:XR TIBIA FIBULA 2 VW LEFTHISTORY:pain, swelling COMPARISON:NoneFINDINGS: Imaging of the ankle, foot and tibia/fibula demonstrates mild swellingabout the forefoot. The ankle mortiseis anatomic. Moderate swellingsurrounds the ankle. Joint spaces are preserved.IMPRESSIONAnkle and forefoot soft tissue swelling with no acute osseousabnormalities.[facility] <3 VW [id number] 16:19:54 Ankle and forefoot soft tissue swelling with no acute osseousabnormalities. EXAM: XR ANKLE <3 VWLEFT, EXAM: XR FOOT <3 VW LEFT, EXAM: XR TIBIA FIBULA 2 VW LEFT HISTORY: pain, swelling COMPARISON: None FINDINGS: Imaging of the ankle, foot and tibia/fibula demonstrates mild swellingabout the forefoot. The ankle mortise is anatomic. Moderate swellingsurrounds the ankle. Joint spaces are preserved. [facility], Radiant Results [facility] User - 11/12/2019 11:21 AM CDTEXAM:XR ANKLE <3 VW LEFT,EXAM:XR FOOT <3 VW LEFT,EXAM:XR TIBIA FIBULA 2 VW LEFTHISTORY:pain, swelling COMPARISON:NoneFINDINGS: Imaging of the ankle, foot and tibia/fibula demonstrates mild swellingabout the forefoot. The ankle mortiseis anatomic. Moderate swellingsurrounds the ankle. Joint spaces are preserved.IMPRESSIONAnkle and forefoot soft tissue swelling with no acute osseousabnormalities.[facility] TIBIA FIBULA 2 VW [id number] 16:19:54 Ankle and forefoot soft tissue swelling with no acute osseousabnormalities. EXAM: XR ANKLE <3 VWLEFT, EXAM: XR FOOT <3 VW LEFT, EXAM: XR TIBIA FIBULA 2 VW LEFT HISTORY: pain, swelling COMPARISON: None FINDINGS: Imaging of the ankle, foot and tibia/fibula demonstrates mild swellingabout the forefoot. The ankle mortise is anatomic. Moderate swellingsurrounds the ankle. Joint spaces are preserved. [facility], Radiant Results [facility] User - 11/12/2019 11:21 AM CDTEXAM:XR ANKLE <3 VW LEFT,EXAM:XR FOOT <3 VW LEFT,EXAM:XR TIBIA FIBULA 2 VW LEFTHISTORY:pain, swelling COMPARISON:NoneFINDINGS: Imaging of the ankle, foot and tibia/fibula demonstrates mild swellingabout the forefoot. The ankle mortiseis anatomic. Moderate swellingsurrounds the ankle. Joint spaces are preserved.IMPRESSIONAnkle and forefoot soft tissue swelling with no acute osseousabnormalities.[facility]"
[2021-02-19] MEDS ORDERED: HYDROCODONE/APAP 10/325 TAB ONE (08:40)
[2021-02-19] MEDS ORDERED: predniSONE 20 MG TAB ONE (08:49)
[2021-02-19] MEDS ORDERED: COLCHICINE 0.6 MG TAB ONE (09:17)
--- NOTE | 2021-02-19 09:31 | RAD REPORT ---
EXAM DESCRIPTION: RAD - Ankle Left 3 View - 02/19/2021 8:44 am CLINICAL HISTORY: Pain;Swelling COMPARISON: Ankle Left 3 View dated 05/25/2017 FINDINGS: Soft tissue swelling is seen about the ankle. No acute fracture or dislocation.
--- NOTE | 2021-02-19 10:05 | ER ---
Nurse's Notes [facility] Name: Jose Rafael Turpin Jr Age: 25 yrs Sex: Male : 1995 Arrival Date: 02/19/2021 Time: 08:03 Bed DIS1 Private MD: Diagnosis: Pain in left ankle and joints of left foot;Gout, unspecified;Idiopathic gout, left ankle and foot Presentation: 02/19 08:20 Chief complaint: Patient states: L ankle pain and swelling for 2 days. No recent ll1 trauma. Has had cough/congestion, COLEMAN, fever for 10 days. Coronavirus screen: Vaccine status: Patient reports receiving the 1st dose of the Covid vaccine. Client denies travel out of the [place] in the last 14 days. congestion, cough unrelated to allergies, difficulty breathing, headache, muscle pain, shortness of breath, Client presents with at least one sign or symptom that may indicate coronavirus-19. Standard/surgical mask placed on the client. Ebola Screen: Patient denies travel to an Ebola-affected area in the 21 days before illness onset. Resp Distress? No respiratory distress is noted at this time. Initial Sepsis Screen: Does the patient meet any 2 criteria? No. Patient's initial sepsis screen is negative. Does the patient have a suspected source of infection? No. Patient's initial sepsis screen is negative. Risk Assessment: Do you want to hurt yourself or someone else? Patient reports no desire to harm self or others. Onset of symptoms was February 09, 2021. 08:20 Method Of Arrival: Wheelchair ll1 08:20 Acuity: KYARA 4 ll1 Triage Assessment: 08:22 General: Appears uncomfortable, Behavior is calm, cooperative, appropriate for age. ll1 Pain: Complains of pain in left medial ankle Quality of pain is described as aching. Neuro: No deficits noted. Cardiovascular: No deficits noted. Respiratory: Airway is patent Trachea midline Respiratory effort is even, unlabored, Respiratory pattern is regular, symmetrical, Breath sounds are clear bilaterally. Musculoskeletal: Reports pain in left medial ankle. Historical: - Allergies: 08:19 NKA; ll1 - PMHx: 08:19 Asthma; fatty liver; Hepatitis; ll1 - PSHx: 08:19 None; ll1 - Immunization history:: Client reports receiving the 1st dose of the Covid vaccine, Flu vaccine is not up to date. - Social history:: Smoking status: Patient denies any tobacco usage or history of. Screenin:31 Abuse screen: Denies threats or abuse. Nutritional screening: No deficits noted. ll1 Tuberculosis screening: No symptoms or risk factors identified. Fall Risk None identified. Total Adam Fall Scale indicates No Risk (0-24 pts). Assessment: 09:20 Reassessment: No changes from previously documented assessment. Patient and/or family ll1 updated on plan of care and expected duration. Pain level reassessed. Patient is alert, oriented x 3, equal unlabored respirations, skin warm/dry/pink. Cardiovascular: No deficits noted. Respiratory: Reports cough that is Airway is patent Trachea midline Respiratory effort is even, unlabored, Respiratory pattern is regular, symmetrical, Breath sounds are clear bilaterally. 10:20 Reassessment: No changes from previously documented assessment. Patient and/or family ll1 updated on plan of care and expected duration. Pain level reassessed. Patient is alert, oriented x 3, equal unlabored respirations, skin warm/dry/pink. Patient states feeling better. Patient states symptoms have improved. Vital Signs: 08:20 BP 134 / 82; Pulse 90; Resp 17; Temp 98.5; Pulse Ox 99% ; Weight 108.86 kg; Height 5 ll1 ft. 6 in. (167.64 cm); Pain 10/10; 10:28 BP 118 / 68; Pulse 91; Resp 16; Pulse Ox 99% on R/A; ll1 08:20 Body Mass Index 38.74 (108.86 kg, 167.64 cm) ll1 ED Course: 08:03 Patient arrived in ED. mr 08:12 Aldo Portillo MD is Attending Physician. kdr 08:20 Arm band placed on Patient placed in a hallway bed, in a wheelchair. ll1 08:20 Patient has correct armband on for positive identification. Bed in low position. Call ll1 light in reach. Side rails up X 1. Cardiac monitoring not applicable on this patient. 08:22 Triage completed. ll1 08:32 Aishwarya Becerra, MANDY is Primary Nurse. ll1 08:45 Ankle Left 3 View XRAY In Process Unspecified. EDMS 10:33 No provider procedures requiring assistance completed. Patient did not have IV access ll1 during this emergency room visit. Administered Medications: 08:43 Drug: Prentiss (HYDROcodone-acetaminophen) 10 mg-325 mg 1 tabs {Note: rass 0.} Route: PO; ll1 10:27 Follow up: Response: No adverse reaction ll1 08:53 Drug: predniSONE 40 mg Route: PO; ll1 10:27 Follow up: Response: No adverse reaction 1 09:24 Drug: Colcrys (colchicine) 1.2 mg Route: PO; 1 10:27 Follow up: Response: No adverse reaction 1 Outcome: 10:04 Discharge ordered by . kdr 10:33 Discharged to home via wheelchair. ll1 10:33 Condition: stable 10:33 Discharge instructions given to patient, family, Instructed on discharge instructions, follow up and referral plans. no drinking with medication, no driving heavy equipment, medication usage, Demonstrated understanding of instructions, follow-up care, medications, Prescriptions given X 4. 10:34 Patient left the ED. 1 Signatures: Dispatcher [employer] EDMS Aldo Portillo MD MD kdr Rivera, Mary mr Lewis, Lynsay, RN RN 1
--- NOTE | 2021-02-19 10:05 | EDPHYS ---
Physician Documentation [facility] Name: Jose Rafael Turpin Jr Age: 25 yrs Sex: Male : 1995 Arrival Date: 02/19/2021 Time: 08:03 Bed DIS1 Private MD: ED Physician Aldo Portillo HPI: 02/19 10:00 This 25 yrs old Male presents to ER via Wheelchair with complaints of Ankle kdr Swelling, Cough, Congestion. 10:00 The patient presents with decreased range of motion, pain. The complaints affect the kdr left ankle. Onset: The symptoms/episode began/occurred gradually, 2 day(s) ago. Context: The problem was sustained at home, resulted from a gout flare up, similar to previous episodes, same location as before, The patient is unable to bear weight. The patient is not able to ambulate. Associated signs and symptoms: The patient has no apparent associated signs or symptoms. Modifying factors: The symptoms are alleviated by nothing, the symptoms are aggravated by weight bearing, movement. Severity of symptoms: At their worst the symptoms were moderate, in the emergency department the symptoms are unchanged. The patient has experienced a previous episode, last year. The patient has not recently seen a physician. Historical: - Allergies: 08:19 NKA; ll1 - PMHx: 08:19 Asthma; fatty liver; Hepatitis; ll1 - PSHx: 08:19 None; ll1 - Immunization history:: Client reports receiving the 1st dose of the Covid vaccine, Flu vaccine is not up to date. - Social history:: Smoking status: Patient denies any tobacco usage or history of. ROS: 10:00 Constitutional: Negative for fever, chills, and weight loss, Eyes: Negative for injury, kdr pain, redness, and discharge, Neck: Negative for injury, pain, and swelling, Cardiovascular: Negative for chest pain, palpitations, and edema, Respiratory: Negative for shortness of breath, cough, wheezing, and pleuritic chest pain, Abdomen/GI: Negative for abdominal pain, nausea, vomiting, diarrhea, and constipation, Back: Negative for injury and pain, : Negative for injury, bleeding, discharge, and swelling, Skin: Negative for injury, rash, and discoloration, Neuro: Negative for headache, weakness, numbness, tingling, and seizure activity. Psych: Negative for depression, anxiety, suicide ideation, homicidal ideation, and hallucinations, Allergy/Immunology: Negative for hives, rash, and allergies, Endocrine: Negative for neck swelling, polydipsia, polyuria, polyphagia, and marked weight changes. 10:00 MS/extremity: Positive for decreased range of motion, pain, swelling, Minimal joint warmth of the left ankle. Exam: 10:00 Constitutional: This is a well developed, well nourished patient who is awake, alert, kdr and in no acute distress. 10:00 Musculoskeletal/extremity: Extremities: grossly normal except: noted in the left Achilles, left medial ankle and anterior aspect of left ankle: decreased ROM, pain, swelling, tenderness. Vital Signs: 08:20 BP 134 / 82; Pulse 90; Resp 17; Temp 98.5; Pulse Ox 99% ; Weight 108.86 kg; Height 5 ll1 ft. 6 in. (167.64 cm); Pain 10/10; 10:28 BP 118 / 68; Pulse 91; Resp 16; Pulse Ox 99% on R/A; ll1 08:20 Body Mass Index 38.74 (108.86 kg, 167.64 cm) ll1 MDM: 10:04 Patient medically screened. kdr 11:30 Data reviewed: vital signs, nurses notes, lab test result(s), radiologic studies. kdr Counseling: I had a detailed discussion with the patient and/or guardian regarding: the historical points, exam findings, and any diagnostic results supporting the discharge/admit diagnosis, lab results, radiology results, the need for outpatient follow up. ED course: Patient had partial relief of his discomfort but not complete. He was overall happy with the care provided the plan for discharge and follow-up.. 02/19 08:24 Order name: COVID-19 (Coronavirus) Document "Date of Onset" if Symptomatic kdr 02/19 08:24 Order name: Ankle Left 3 View XRAY; Complete Time: 09:32 kdr 02/19 09:20 Order name: SARS-COV-2 RT PCR; Complete Time: 09:59 EDMS Administered Medications: 08:43 Drug: [place] (HYDROcodone-acetaminophen) 10 mg-325 mg 1 tabs {Note: rass 0.} Route: PO; ll1 10:27 Follow up: Response: No adverse reaction ll1 08:53 Drug: predniSONE 40 mg Route: PO; 1 10:27 Follow up: Response: No adverse reaction 1 09:24 Drug: Colcrys (colchicine) 1.2 mg Route: PO; 1 10:27 Follow up: Response: No adverse reaction ll1 Disposition Summary: 02/19/21 10:04 Discharge Ordered Location: Home kdr Problem: new kdr Symptoms: have improved kdr Condition: Stable kdr Diagnosis - Pain in left ankle and joints of left foot kdr - Gout, unspecified kdr - Idiopathic gout, left ankle and foot kdr Followup: kdr - With: Private Physician - When: 2 - 3 days - Reason: If symptoms return, Further diagnostic work-up, Recheck today's complaints, Continuance of care, Re-evaluation by your physician Discharge Instructions: - Discharge Summary Sheet kdr - Low-Purine Eating Plan kdr - Gout, [id number] kdr - Joint Pain, Yerv-om-Tsar kdr Forms: - Medication Reconciliation Form kdr - Thank You Letter kdr - Antibiotic Education kdr - Prescription Opioid Use kdr - Work release form 1 Prescriptions: - colchicine 0.6 mg Oral tablet - take 1 tablet by ORAL route once daily; 7 tablet; Refills: 0, Product Selection kdr Permitted - Ibuprofen 800 mg Oral Tablet - take 1 tablet by ORAL route every 8 hours As needed take with food; 30 tablet; kdr Refills: 0, Product Selection Permitted - Prednisone 20 mg Oral Tablet - take 2 tablets by ORAL route once daily for 5 days; 10 tablet; Refills: 0, kdr Product Selection Permitted - Tylenol-Codeine #3 300 mg-30 mg Oral - take 1 tablet by ORAL route every 4-6 hours; 16 tablet; Refills: 0, Product kdr Selection Permitted Signatures: Dispatcher [employer] EDAldo Bean MD MD kdr Aishwarya Becerra RN RN ll1 Corrections: (The following items were deleted from the chart) 09:19 08:25 CORONAVIRUS ordered. EDCA EDMS
[2021-02-19 10:39] VITALS: TEMP 98.5; O2SAT 99
[2021-02-19 10:40] VITALS: BP 118/68
== END 2021-02-19 10:34 | disposition home or self-care (01) ==
LOC: ER 07:58
DX: M10.072 Idiopathic gout, left ankle and foot (principal); Z20.822 Contact with and (suspected) exposure to COVID-19
CPT/HCPCS: 73610; 99283; U0003; J7512